=== PATIENT | female | born 1990 | race Caucasian/White ===

== ENCOUNTER → 2018-10-19 09:52 | Outpatient (CLI) | payer OTHER, MEDICAID, SELFPAY ==
[2018-10-19 11:30] LABS: Add Manual Diff / Slide Review NO; Eosinophils Percent Auto 4.5 % (2-4); Hematocrit 35.7 % (36-46); Lymphocytes Percent Auto 32.4 % (25-40); Mean Corpuscular HGB Conc 33.7 % (30-36); Mean Corpuscular Hemoglobin 30.3 PG (26-34); Neutrophils Absolute Auto 3600 /uL (1500-7000); Neutrophils Percent Auto 55.1 % (50-75); Platelet Count 304 X10^3/uL (150-400); Red Blood Cell Count 3.96 X10^6/uL (4.0-5.2); Red Cell Distribution Width 13.3 % (11.6-14.8); White Blood Cell Count 6.5 X10^3/uL (4.5-11.0)
[2018-10-19 15:08] LABS: HIV 1 and 2 Antibody NEGATIVE (NEGATIVE); Hep C Virus Ab w/Reflex Quant NEGATIVE s/c (NEGATIVE); Hepatitis B Surface Antigen NEGATIVE s/c (NEGATIVE)
[2018-10-21 17:33] LABS: RPR Screen Nonreactive (Nonreactive)
[2018-10-24 09:43] LABS: HSV 2 IGG AB < 0.90 index (< 0.90)
== END ==
PROVIDERS: PCP Specialist; Visit Provider Specialist
DX: Z34.91 Encounter for supervision of normal pregnancy, unspecified, first trimester (principal)
CPT/HCPCS: 36415; 80055; 86695; 86696; 86703; 86787; 86803; 86850; 86900; 86901; 87086

== ENCOUNTER → 2018-12-23 10:50 | Outpatient (CLI) | payer OTHER, MEDICAID, SELFPAY ==
[2018-12-27 15:00] LABS: AFP, Serum 68.3 ng/mL; Calc Gestational Age 18.6; Cigarette Smoker N; Donated Egg NOT GIVEN; Donor Egg Age NOT GIVEN; Inhibin A, Dimeric 227 pg/mL; Maternal Weight 172 lbs; Number of Fetuses NOT GIVEN; Previous Pregnancy Down Syndro NOT GIVEN; hCG, Serum 26.9 IU/mL
== END ==
PROVIDERS: PCP Specialist; Visit Provider Specialist
DX: Z34.02 Encounter for supervision of normal first pregnancy, second trimester (principal); Z3A.18 18 weeks gestation of pregnancy
CPT/HCPCS: 36415; 82105; 82677; 84702; 86336

== ENCOUNTER → 2019-04-24 11:07 | Outpatient (CLI) | payer OTHER, MEDICAID, SELFPAY ==
[2019-04-25 14:13] LABS: Strep Grp B PCR NEG for Grp B Strep
== END ==
PROVIDERS: PCP Specialist; Visit Provider Specialist
DX: Z34.83 Encounter for supervision of other normal pregnancy, third trimester (principal); Z3A.35 35 weeks gestation of pregnancy
CPT/HCPCS: 87653

== ENCOUNTER 2019-05-28 12:34 | Outpatient (CLI) | payer OTHER, MEDICAID, SELFPAY | END 2019-05-28 13:32 | disposition home or self-care (01) | LOC: OB 06-05 12:01 | PROVIDERS: PCP Specialist; Visit Provider Specialist | DX: Z34.93 Encounter for supervision of normal pregnancy, unspecified, third trimester (principal); Z3A.40 40 weeks gestation of pregnancy | CPT/HCPCS: 59025; 76815; G0378; G0379 ==

== ENCOUNTER 2019-05-28 15:50 | Inpatient (IN) | payer OTHER, MEDICAID, SELFPAY ==
--- NOTE | 2019-05-28 15:59 | P.HPOB_ITS ---
OB HPI Date/Time Date of admission: 05/28/19 Date Patient Seen: 05/28/19 Time Patient Seen: 13:00 History of Present Condition Chief complaint: eval of labor : 3 Para: 0 Estimated Date of Delivery: 05/22/19 Estimated Gestational Age (weeks): 40 Narrative: Ruth Barry is a 29 year old female admitted for induction for postdates and hypertension Indications Indication for induction OB: medical complication (Hypertension) History of Present care: good care, initiated at week # (9), number of visits (13) and pounds weight gain (36) Dating criteria: LMP confirmed by 1st trimester US Ultrasounds: normal mid trimester US Obstetrical complications: gestational hypertension Medical complications: none Preadmission Labs Blood type: O (+) positive -: Antibody screen: negative, GBS status: negative, HBsAG: negative, HIV: negative, HSV 1: positive, HSV 2: negative and RPR/VDLR: negative -: Chlamydia screen: not detected and Gonorrhea screen: not detected -: Rubella: not immune and Varicella: immune HCAB: negative PAP: Normal Quad screen: Normal 1 hr GTT: 73 Evaluation Evaluation Baseline heart rate: 130 Variability: Moderate (11-25) monitor accelerations: Present monitor decelerations: Absent Contraction Frequency (minutes): 0 Category of Tracing: I Cervical dilation (cm): 0 Cervical effacement (%): 60 station: -3 [facility] Medical History (Updated 05/28/19 @ 16:26 by Nohemy Rowe MD) Migraine headache (Chronic) Social History Smoking Status: Former smoker Social History Smoking Status: Former smoker Meds Home Medications Medication Instructions Recorded Confirmed Type No Known Home Medications 05/28/19 05/28/19 History Allergies Allergy/AdvReac Type Severity Reaction Status Date / Time penicillin G Allergy Severe Anaphalaxis Verified 10/23/18 15:56 - Family H/O also Review of Systems Review of Systems Patient denies headaches, scotomata, epigastric pain. Good movement. No leakage of fluid. All systems reviewed & are unremarkable except as noted in HPI and below Exam Vital Signs (past 8 hours): Patient has diastolics over 100 when she is laying flat on her back. These decreased to the 80s when she is on her side Narrative Exam Narrative: HEENT exam within normal limits. Lungs are clear to auscultation percussion. Heart is regular rate and rhythm no S3-S4 murmurs. is vertex. Abdomen is soft nontender. Extremities with trace edema and normal DTRs. Assessment and Plan Assessment and Plan Assessment and Plan narrative: 40w6d gestation with hypertension and non favorable cervix admitted for Prostin followed by Pitocin induction if necessary.
[2019-05-28 16:59] VITALS: BP 131/78
[2019-05-28] MEDS: CALCIUM CARBONATE 500 MG TAB 1000 MG PO (17:11)
[2019-05-28] MEDS: miSOPROStol 25 MCG TABLET VAG ×2 (17:56→22:12)
[2019-05-28 18:22] LABS: Add Manual Diff / Slide Review NO; Basophils Absolute Auto 0 /uL (0-100); Basophils Percent Auto 0.3 % (0-2); Eosinophils Absolute Auto 100 /uL (0-450); Eosinophils Percent Auto 0.8 % (2-4); Hematocrit 32.4 % (36-46); Hemoglobin 10.8 g/dL (12.0-16.0); Lymphocytes Absolute Auto 1800 /uL (1100-4500); Lymphocytes Percent Auto 21.5 % (25-40); Mean Corpuscular HGB Conc 33.3 % (30-36); Mean Corpuscular Hemoglobin 28.7 PG (26-34); Mean Corpuscular Volume 86.2 fL (80-100); Monocytes Absolute Auto 800 /uL (0-900); Neutrophils Absolute Auto 5900 /uL (1500-7000); Neutrophils Percent Auto 68.4 % (50-75); Platelet Count 253 X10^3/uL (150-400); Red Blood Cell Count 3.76 X10^6/uL (4.0-5.2); Red Cell Distribution Width 14.1 % (11.6-14.8); White Blood Cell Count 8.6 X10^3/uL (4.5-11.0)
[2019-05-28 19:01] LABS: Aspartate Aminotransferase 22 IU/L (14-36); Blood Urea Nitrogen 9 mg/dL (7-17); Estimated Glomerular Filt Rate > 60.0 mL/min (>60); Uric Acid 3.8 mg/dL (2.5-6.2)
[2019-05-29] MEDS: fentaNYL 100 MCG/2 ML INJ IV ×5 (00:25→06:09)
[2019-05-29] MEDS: MORPHINE 4 MG/ML INJ IV (02:08)
[2019-05-29] MEDS: LACTATED RINGERS 1,000 ML 750 ML IV (02:10)
[2019-05-29] MEDS: OXYTOCIN PREMIX 30 UNIT/500 ML PLAST..BAG IV (08:48)
[2019-05-29] MEDS: CITRIC ACID/SODIUM CITRATE 15 ML SOLUTION 30 ML PO (12:00)
--- NOTE | 2019-05-29 13:35 | PM.OBPRVD ---
Delivery date: 05/29/19 Intrapartal events: Ineffective Pushing Cervical ripening method: per misoprostal protocol Delivery augmentation: pitocin Delivery monitor: external FHT and external uterine Route of delivery: vacuum extraction Indication for instrumentation: maternal exhaustion L&D Laceration Description: Periurethral - 1st Degree Estimated blood loss (mL): 200 Anesthesia type: Epidural Narrative: Patient was admitted to Labor and delivery for postdates with elevated blood pressures. She received Cytotec x2 and had onset of labor. Patient received an epidural catheter for pain control. She progressed normally with occasional decelerations but otherwise category 1 to category 2 tracing. She had Pitocin begun with maximum until the very end of pushing of 3 milliunits. She was AROMed at 9 1/2 cm for clear fluid. After about 2 hours of pushing the patient was not making progress and was exhausted. heart tones were having severe variables. Decision was made to assist with delivery. Patient requested vacuum rather than forceps or . The vacuum was placed for a total of 3 contractions bringing the head to the perineum. The patient took several more pushes to deliver the head. was delivered with a nuchal cord. The male was placed on maternal abdomen. After the cord stopped pulsating the cord was clamped cut and cord bloods obtained. The placenta delivered spontaneously, intact, with 3 vessels. There were no cervical, vaginal, or perineal tears. There were bilateral periurethral first-degree tears that did not require suturing. Estimated blood loss 200 cc. Both infant and mother doing well. Baby's Apgars were 8 and 9. Baby 1: Infant gender: Male Presentation: vertex position: Right Occiput Anterior Placenta delivery description: Spontaneous cord vessel description: Nuchal Cord score (1 min): 8 score (5 min): 9 Plan for aftercare: Routine care
--- NOTE | 2019-05-29 13:41 | P.PCNOB_ITS ---
Delivery date: 05/29/19 Intrapartal events: Ineffective Pushing Cervical ripening method: per misoprostal protocol Delivery augmentation: pitocin Delivery monitor: external FHT and external uterine Route of delivery: vacuum extraction Indication for instrumentation: maternal exhaustion L&D Laceration Description: Periurethral - 1st Degree Estimated blood loss (mL): 200 Anesthesia type: Epidural Narrative: Patient was admitted to Labor and delivery for postdates with elevated blood pressures. She received Cytotec x2 and had onset of labor. Patient received an epidural catheter for pain control. She progressed normally with occasional decelerations but otherwise category 1 to category 2 tracing. She had Pitocin begun with maximum until the very end of pushing of 3 milliunits. She was AROMed at 9 1/2 cm for clear fluid. After about 2 hours of pushing the patient was not making progress and was exhausted. heart tones were having severe variables. Decision was made to assist with delivery. Patient requested vacuum rather than forceps or . The vacuum was placed for a total of 3 contractions bringing the head to the perineum. The patient took several more pushes to deliver the head. was delivered with a nuchal cord. The male was placed on maternal abdomen. After the cord stopped pulsating the cord was clamped cut and cord bloods obtained. The placenta delivered spontaneously, intact, with 3 vessels. There were no cervical, vaginal, or perineal tears. There were bilateral periurethral first- degree tears that did not require suturing. Estimated blood loss 200 cc. Both and mother doing well. Baby's Apgars were 8 and 9. [place] Baby 1: Infant gender: Male Presentation: vertex position: Right Occiput Anterior Placenta delivery description: Spontaneous cord vessel description: Nuchal Cord score (1 min): 8 score (5 min): 9 Plan for aftercare: Routine care
[2019-05-29] MEDS: DERMOPLAST SPRAY 20% 60 ML 1 SPRAY TOP (19:47)
[2019-05-29] MEDS: IBUPROFEN 600 MG TABLET PO (19:48)
[2019-05-30] MEDS: IBUPROFEN 600 MG TABLET PO ×4 (02:01→20:55)
[2019-05-30 06:39] LABS: Hematocrit 27.9 % (36-46); Hemoglobin 9.3 g/dL (12.0-16.0)
--- NOTE | 2019-05-30 08:38 | P.PNOB_ITS ---
Subjective - OB Patient comments: no complaints baby status: doing well [place] feeding status: exclusively breast feeding Date Patient Seen: 05/30/19 Time Patient Seen: 08:44 Interval history: Patient denies headaches, scotomata, epigastric pain. She is urinating and ambulating well. Exam Vital Signs (past 8 hours): Blood pressure 138/96, pulse of 100, temperature 97.8? Narrative Exam Narrative: Abdomen is soft, nontender. Uterus is firm, at U, nontender. Mild lochia. Extremities without edema and nontender. Objective Labs Result Diagrams: 05/30/19 06:25 05/28/19 17:30 Labs: Laboratory Results - last 24 hr 05/30/19 06:25 Hgb 9.3 L Hct 27.9 L Assessment & Plan (1) Vacuum-assisted vaginal delivery: Status: Acute Current Visit: Yes (2) Acute blood loss anemia: Status: Acute Current Visit: Yes (3) Hypertension affecting , delivered, current hospitalization: Status: Acute Current Visit: Yes Time Spent With Patient Total time spent is greater than 50% in coordination of care (as documented) at patient's floor/unit and/or counseling patient: less than 15 minutes
[2019-05-30] MEDS: FERROUS GLUCONATE 324 MG TABLET PO ×2 (09:02→20:55)
[2019-05-30] MEDS: DOCUSATE 250 MG CAPSULE PO (09:02)
[2019-05-31] MEDS: IBUPROFEN 600 MG TABLET PO ×2 (03:55→10:41)
--- NOTE | 2019-05-31 09:26 | P.DS_ITS ---
Discharge Providers Date of admission: 05/28/19 15:50 Discharge Date: 05/31/19 Primary care physician: Nohemy Rowe MD Consults: 05/28/19 16:03 Consult to Anesthesiology Urgent Comment: Consulting Provider: Anesthesiologist Reason for consultation: Epidural Has provider been notified: No 05/29/19 15:28 Consult to [facility] Worker Routine Comment: Discharge provider: Nohemy Rowe MD Summary Date Patient Seen: 05/31/19 Time Patient Seen: 09:22 Procedures: Prostin induction, epidural catheter, a vacuum assisted vaginal delivery Hospital Course: Patient was admitted from the office for Prostin induction due to hypertension. She received an epidural catheter for pain control. She had a vacuum assisted vaginal delivery for maternal exhaustion. She denies any signs or symptoms of preeclampsia. She is urinating and ambulating well with minimal pain. She is breast-feeding without difficulty. Blood pressure 150/93, pulse 100, temperature 98.2?. Abdomen is soft nontender. Uterus is firm, at U, nontender. Mild lochia. Extremities with trace edema nontender. Patient is Rh positive. She is rubella non immune but refused vaccination. She also refused the Tdap. Patient was started on iron for anemia and labetalol for hypertension. Routine precautions reviewed with the patient. Peripartum Data Delivery Method: Assisted Delivery (Vacuum assisted) Laceration description: Periurethral - 1st Degree Procedures: Prostin induction, epidural catheter, vacuum assisted vaginal delivery complications: none [place] 1: Gender: Male Disposition of : home Discharge Diagnosis (1) Vacuum-assisted vaginal delivery: Status: Acute (2) Acute blood loss anemia: Status: Acute (3) Hypertension affecting , delivered, current hospitalization: Status: Acute Status at Discharge Cognitive/behavioral status at discharge: oriented Functional status at discharge: independent ambulation Overall status at discharge: patient is progressing back to baseline Time Spent with Patient Total time spent providing and/or coordinating discharge services: Objective Labs Result Diagrams: 05/30/19 06:25 05/28/19 17:30 Discharge Plan Discharge Plan Patient Disposition: Home Discharge Med Rec/Prescriptions Prescriptions: New ibuprofen 600 mg Tablet 600 mg PO Q6HR PRN (Reason: Pain, Mild (1-3)) Qty: 30 RF: 0 docusate sodium 250 mg Capsule 250 mg PO DAILY Qty: 30 RF: 0 ferrous gluconate 324 mg (38 mg iron) Tablet 324 mg PO BID Qty: 60 RF: 0 labetalol 100 mg tablet 100 mg PO BID Qty: 60 RF: 0 Follow up/Referrals: Nohemy Rowe MD [Primary Care Provider] - (Please follow up with Dr. Rowe on , June 19 at 4:00PM in [place]. ) Provider Discharge Instructions Diet: Regular Activity: Nothing in vagina for 4 weeks Skin/Wound/Dressing Care Report to your healthcare provider any signs of infection, such as:: chills, fever and increased pain Discharge Data Primary Care Provider: Nohemy Rowe Attending Provider: Nohemy Rowe Admit Date/Time: 05/28/19 15:50
[2019-05-31] MEDS: DOCUSATE 250 MG CAPSULE PO (10:39)
[2019-05-31] MEDS: FERROUS GLUCONATE 324 MG TABLET PO (10:39)
[2019-05-31 10:40] VITALS: BP 153/90; PULSE 100
[2019-05-31] MEDS: LABETALOL 100 MG TABLET PO (10:40)
[2019-05-31 10:42] VITALS: BP 153/90; PULSE 100; RESP 18; TEMP 36.2
== END 2019-05-31 12:00 | disposition home or self-care (01) | DRG 560 ==
PROVIDERS: Admitting Provider Specialist; PCP Specialist; Visit Provider Specialist
DX: O48.0 Post-term pregnancy (principal); O16.3 Unspecified maternal hypertension, third trimester; O75.81 Maternal exhaustion complicating labor and delivery; Z3A.40 40 weeks gestation of pregnancy; Z37.0 Single live birth; D62 Acute posthemorrhagic anemia; O70.0 First degree perineal laceration during delivery
CPT/HCPCS: 01967; 36415; 59025; 59050; 59409; 76815; 84450; 84550; 85014; 85018; 85025; 86850; 86900; 86901; G0378; G0379; J2270; J2590; J3010